=== PATIENT | female | born 1980 | race Caucasian/White ===

== ENCOUNTER → 2017-09-07 13:37 | Outpatient (CLI) | payer OTHER, SELFPAY ==
--- NOTE | 2017-09-07 12:05 | CER_PTH ---
PATIENT: JAVON HANEY [facility]: [facility] U#:[id number] AGE/SX: 45/F ROOM: RE09/07/[address]: Dr. Daisy Cavazos MD : 1980 BED: DIS: SPEC #: [id number] RECD: 09/07/17 14:37 STATUS: KONSTANTIN RERosalie #: [id number] RE: 09/07/17 12:[address]: Daisy Brunson DEPT: SURGICAL PATHOLOGY RECD BY: Radames Schultz ENTERED: 09/07/17 14:38 SP TYPE: CERV OTHR DR: Macrina Primary Care Phys Tissues: A - Uterine cervix, NOS B - Uterine cervix, NOS C - Endocervical Procedures: Surgery Specimen Level IV HEADER OPERATION: Colposcopy PRE-OP DIAGNOSIS: LGSIL pap 06/15/17, LMP 08/19/17 TISSUE SUBMITTED: A ? Cervical biopsy 12 o?clock os, B ? Cervical biopsy 12 o?clock franchesca, C - ECC MICROSCOPIC DIAGNOSIS A. Cervix, 12 o?clock, os, biopsy: Scant minute fragments of benign endocervical epithelium, no pathologic diagnosis. Negative for dysplasia. B. Cervix, 12 o?clock, franchesca, biopsy: Fragments of benign ecto- and endocervical epithelium, no pathologic diagnosis. Negative for dysplasia. C. ECC: Fragments of benign endocervical epithelium and mucosa with chronic inflammation, blood and mucous. Negative for dysplasia. ZION:anjana 09/08/17 MICROSCOPIC DESCRIPTION Slides are reviewed. GROSS DESCRIPTION A - Received in fixative is one container labeled with the patient's name and designated cervical biopsy 12 o'clock os. The specimen consists of multiple irregular fragments of light bee mucoid tissue that in aggregate measure 0.5 x 0.2 x 0.1 cm. The specimen is totally submitted in one cassette. B - Received in fixative is one container labeled with the patient's name and designated cervical biopsy 12 o'clock franchesca. The specimen consists of multiple irregular fragments of light bee mucoid tissue that in aggregate measure 0.3 x 0.1 x 0.1 cm. The specimen is totally submitted in one cassette. C - Received in fixative is one container labeled with the patient's name and designated ECC. The specimen consists of multiple fragments of hemorrhagic mucoid tissue that in aggregate measure 1.5 x 1.5 x 0.1 cm. The specimen is totally submitted in one cassette. / ZION:anjana 09/07/17 TC:3 CPT: 87125 x3
== END ==
PROVIDERS: Visit Provider Obstetrics & Gynecology
DX: R87.612 Low grade squamous intraepithelial lesion on cytologic smear of cervix (LGSIL) (principal)
CPT/HCPCS: 88305

== ENCOUNTER → 2019-05-13 12:32 | Outpatient (CLI) | payer BC, SELFPAY ==
--- NOTE | 2019-05-13 12:39 | RAD_ITS ---
STUDY: X-RAY - LEFT KNEE REASON FOR EXAM: Female, 38 years old. Medial knee pain TECHNIQUE: 3 view(s) of the knee. COMPARISON: None. FINDINGS: Normal visualized distal femur. Normal visualized proximal tibia and fibula. Normal proximal tibiofibular articulation. Normal medial femorotibial compartment. Normal lateral femorotibial compartment. Normal patellofemoral articulation. The soft tissue structures are unremarkable. RAD/Knee 4 or More Views IMPRESSION: Normal x-ray examination of the knee. Electronically Signed: Omega Zamudio, at 18:20 EDT Tel , Service support ,
== END ==
PROVIDERS: Referring Provider Nurse Practitioner; Visit Provider Nurse Practitioner
DX: M25.562 Pain in left knee (principal)
CPT/HCPCS: 73564

== ENCOUNTER → 2021-03-22 16:04 | Outpatient (CLI) | payer BC, SELFPAY ==
[2021-03-27 20:08] LABS: HPV Genotype 16, Aptima Negative (Negative)
[2021-03-27 20:26] LABS: HPV APTIMA, High Risk Positive (Negative); HPV Genotype 18,45 Aptima Negative (Negative)
== END ==
PROVIDERS: Visit Provider Obstetrics & Gynecology
DX: Z12.4 Encounter for screening for malignant neoplasm of cervix (principal); Z11.3 Encounter for screening for infections with a predominantly sexual mode of transmission
CPT/HCPCS: 87624; 88175; G0145

== ENCOUNTER → 2021-03-25 11:11 | Outpatient (CLI) | payer BC, SELFPAY ==
[2021-03-25 14:38] LABS: HIV - WCH Non-Reactive (Nonreactive); Hepatitis C Antibody Non-Reactive (Nonreactive); Syphilis Antibodies Non-reactive
== END ==
PROVIDERS: Visit Provider Obstetrics & Gynecology
DX: Z11.3 Encounter for screening for infections with a predominantly sexual mode of transmission (principal)
CPT/HCPCS: 36415; 86703; 86780; 86803

== ENCOUNTER 2021-08-30 16:11 | Outpatient (CLI) | payer OTHER, SELFPAY ==
[2021-09-02 18:08] LABS: Chlamydia By Nucleic Acid AMP Negative (Negative)
[2021-09-03 09:53] LABS: Gonococcus By Nucleic Acid AMP Negative (Negative)
== END 2021-08-30 23:59 | disposition short-term general hospital (02) ==
LOC: LABSPEC 16:13
PROVIDERS: Visit Provider Obstetrics & Gynecology
DX: Z11.3 Encounter for screening for infections with a predominantly sexual mode of transmission (principal)
CPT/HCPCS: 87491; 87591

== ENCOUNTER → 2022-04-15 | Outpatient (CLI) | payer OTHER, SELFPAY ==
--- NOTE | 2022-04-15 | IMM_PTH ---
PATIENT: JAVON HANEY LOC: [facility] U#:[id number] AGE/SX: 41/F ROOM: RE04/15/[address]: Dr. Dejon Marsh MD : 1980 BED: DIS: 04/15/2022 SPEC #: [id number] RECD: 04/16/22 13:46 STATUS: KONSTANTIN REQ #: [id number] RE: 04/15/22 00:[address]: Dejon Marsh DEPT: IMMUNOHISTOCHEMISTRY RECD BY: Rhea Romero ENTERED: 04/16/22 13:47 SP TYPE: IMMUNO OT DR: No Primary Care Phys Tissues: A - Uterine cervix, NOS B - Endocervical Procedures: p16 (initial) KI-67 (add) PHYSICIAN & INSTITUTION [place] [phone] SPECIMEN INFORMATION: Tissue Source: A ? Cervical biopsy at 1, 5, 7 and 11 o?clock, B - [facility] Clinical Info: ASCUS HPV positive Specimen Number: [id number] A & B CPT code: 88588 x2, 96230 x2 METHODOLOGY: Deparaffinized sections of prefer/formalin-fixed tissue or PAP/DQ stained slides are incubated with monoclonal/polyclonal antibodies/oligonucleotide probes. Localization is made via biotin free immunoperoxidase method. Appropriate controls are performed and reacted as expected. Results on target cell population are indicated in the following table: RESULTS: ANTIBODY / CLONE RESULT Block A P16 (E6H4) negative Ki-67 (30-9) negative Block B P16 (E6H4) negative Ki-67 (30-9) negative These tests were developed and their performance characteristics determined by [facility]. They may not have been cleared or approved by the U.[place]. Food and Drug Administration. The FDA has determined that such clearance or approval is not necessary. The above immunohistochemical/dualISH markers are ordered and reviewed by the Pathologist. INTERPRETATION: A. Cervical biopsy at 1, 5, 7 and 11 o?clock, biopsy: Negative for dysplasia. B. ECC: Negative for dysplasia. SJ:anjana 04/17/2022
--- NOTE | 2022-04-15 | CER_PTH ---
PATIENT: JAVON HANEY [facility] U#:[id number] AGE/SX: 41/F ROOM: RE04/15/[address]: Dr. Dejon Marsh MD : 1980 BED: DIS: 04/15/2022 SPEC #: [id number] RECD: 04/15/22 13:24 STATUS: KONSTANTIN STEPH #: [id number] RE: 04/15/22 00:[address]: Dejon Marsh DEPT: SURGICAL PATHOLOGY RECD BY: Radames Schultz ENTERED: 04/15/22 13:25 SP TYPE: CERV OSEI DR: No Primary Care Phys Tissues: A - Uterine cervix, NOS B - Endocervical Procedures: Surgery Specimen Level IV HEADER OPERATION: Colposcopy PRE-OP DIAGNOSIS: ASCUS HPV positive TISSUE SUBMITTED: A ? Cervical biopsy at 1, 5, 7 and 11 o?clock, B - ECC MICROSCOPIC DIAGNOSIS A. Cervix, 1, 5, 7 and 11 o?clock, biopsy: Fragments of squamous mucosa, negative for dysplasia. Focal mild chronic inflammation. See comment. B. ECC: Scant minute fragment of benign squamous epithelium, negative for dysplasia. A few minute fragments of endocervical mucosa with mild chronic inflammation. See comment. ZION:anjana 04/16/2022 COMMENT A & B. Immunohistochemistry ([id number]) for surrogate HPV marker (p16) supports the above diagnosis. MICROSCOPIC DESCRIPTION Slides are reviewed. GROSS DESCRIPTION A - Received in fixative is one container labeled with the patient's name and designated cervical biopsy at 1, 5, 7 and 11 o'clock. The specimen consists of three irregular fragments of bee soft tissue that in aggregate measure 0.8 x 0.4 x 0.3 cm. The specimen is totally submitted in one cassette. B - Received in fixative is one container labeled with the patient's name and designated ECC. The specimen consists of multiple irregular fragments of bee mucoid tissue that in aggregate measure 1 x 0.1 x 0.1 cm. The specimen is totally submitted in one cassette. / ZION:anjana 04/15/2022 TC:5 CPT: 11643 x2
== END | disposition home or self-care (01) ==
LOC: LABSPEC 12:30
PROVIDERS: Visit Provider Obstetrics & Gynecology
DX: N72 Inflammatory disease of cervix uteri (principal); R87.810 Cervical high risk human papillomavirus (HPV) DNA test positive
CPT/HCPCS: 88305; 88341; 88342

== ENCOUNTER → 2022-06-03 | Outpatient (CLI) | payer OTHER, SELFPAY ==
--- NOTE | 2022-06-03 07:20 | BI_ITS ---
MAMMOGRAPHY - BILATERAL SCREENING REASON FOR EXAM: Female, 42 years old. Routine annual screening examination. PERTINENT HISTORY: Non-contributory. TECHNIQUE: Digital bilateral breast susu (3D mammographic acquisition) in the CC and MLO projections. 2-D mediolateral oblique (MLO) and craniocaudad (CC) views of both breasts were obtained. CAD: Full Field Digital Mammography with Computer Added Detection was performed. COMPARISON: None. Baseline examination. FINDINGS: Breast Composition: The breasts are heterogeneously dense, which may obscure small masses. There are no dominant masses or suspicious calcifications. There is asymmetry of breast tissue or more breast tissue is seen in the upper-outer quadrant of the left breast as compared to the right side. No other significant abnormalities are identified. BI/SCRN MAMM (CAD)W/SUSU BILAT IMPRESSION: Negative screening mammogram. Yearly followup mammogram recommended. (A) ASSESSMENT CATEGORY: BIRADS Category 2: Benign. A letter regarding these results will be sent to the patient by the facility within 30 days. Approximately 10% of breast cancers are not detected by mammography. A normal mammogram should not delay biopsy of a clinically suspicious abnormality. [id number] Electronically Signed: Froilan Claros MD at 8:54 EDT ,
== END | disposition home or self-care (01) ==
PROVIDERS: Visit Provider Obstetrics & Gynecology
DX: Z12.31 Encounter for screening mammogram for malignant neoplasm of breast (principal)
CPT/HCPCS: 77063; 77067

== ENCOUNTER 2023-04-02 15:00 | Outpatient (RCR) | payer OTHER, SELFPAY ==
[2023-04-01 15:23] VITALS: BP 145/93; PULSE 94; RESP 20; TEMP 36.4
[2023-04-02 15:03] VITALS: BP 150/103; PULSE 95; RESP 18; TEMP 36.2
--- NOTE | 2023-04-02 16:48 | CT_ITS ---
CT angiogram of the abdominal aorta with bilateral lower extremity runoff with 3-dimensional reconstructions, with MIP reconstructions Clinical history: POSS POPLITEAL PSEUDOANEURYSM Technique: Multiple helical CT images were obtained from the domes the diaphragms to level of feet after intravenous administration of 100 cc Isovue-370 with transaxial, coronal and sagittal multiplanar reconstructions. On a separate workstation, 3-dimensional reconstructions were obtained of the arterial vasculature using volume rendering technique and maximal intensity projection technique as per departmental protocol. This CT exam has been performed using low dose vendor recommended protocols to limit radiation exposure to As Low As Reasonably Achievable. RADIATION DOSAGE (If Supplied By Facility): CTDIvol = ( 9.12 ) mGy, DLP = ( 1927.56 ) mGycm COMPARISON: No relevant prior comparison study available FINDINGS: ABDOMEN / PELVIS: The visualized portions of the liver are unremarkable. The visualized portions of the spleen and pancreas appear to be within normal limits. Gallbladder is contracted.. The kidneys are unremarkable. The visualized bowel is unremarkable. The pelvic structures appear normal. IUD in place. VASCULAR STRUCTURES: There appears to be good opacification and patency of the visualized abdominal aorta. There appears to be good opacification and patency of the celiac trunk, superior mesenteric artery. There appears to be good opacification and patency noted of the RIGHT and LEFT renal arteries. There appears to be good opacification and patency noted of the inferior mesenteric artery. ARTERIAL STRUCTURES OF THE RIGHT LOWER EXTREMITY: Common iliac artery: Appears patent with good opacification. External iliac artery: Appears patent with good opacification. Internal iliac arteries: Appears patent with good opacification. Common femoral artery: Appears patent with good opacification. Superficial femoral arteries: Appear patent with good opacification. Popliteal artery: Appears patent with good opacification. Anterior tibial artery: Appears patent with good opacification. Posterior tibial artery: Appears patent with good opacification. Peroneal artery: Appears patent with opacification. ARTERIAL STRUCTURES OF THE LEFT LOWER EXTREMITY: Common iliac artery: Appears patent with good opacification. External iliac artery: Appears patent with good opacification. Internal iliac arteries: Appears patent with good opacification. Common femoral artery: Appears patent with good opacification. Superficial femoral arteries: Appear patent with good opacification. Popliteal artery: Appears patent with good opacification. Anterior tibial artery: Appears patent with good opacification. Posterior tibial artery: Appears patent with good opacification. Peroneal artery: Appears patent with opacification. Skin defect posterior to the left knee with subcutaneous soft tissue edema, small posterior fluid collection with internal gas bubbles. CT/CTA Abd w/Runoff W/WO Contrast IMPRESSION: Normal study of the bilateral lower extremity runoff. No evidence of left popliteal artery pseudoaneurysm. Soft tissue wound posterior to the left knee with subcutaneous edema/cellulitis and small fluid collection with gas bubbles, infected collection cannot be excluded. Electronically Signed: Elan Olivier MD at 18:22 EDT ,
--- NOTE | 2023-04-03 00:21 | PCM.WC.HP ---
History of Present Illness Date of Service: 04/03/23 Chief Complaint: L popliteal fossa wound History of Wound: Patient is a 42 y/o female who presents today for evaluation and management of a wound in her L popliteal fossa. On 03/20, she fell getting down from a truck bed and hit the back of her L knee on the truck hitch/wires, She reports initially it left a gash, but did not seem too deep. As time went on, she had progressively worsening L lower leg swelling/bruising, redness, and pain so she presented to urgent care on 03/24 for evaluation. She was prescribed Keflex and instructed to follow-up with her PCP. She saw her PCP on 03/26, a culture was obtained and report shows it grew MRSA, she was switched to doxycycline. A duplex was also ordered which was negative for DVT, showed anterior etienne hematoma. She was referred here for continued wound care. She has been applying dry dressing to the area, it is challenging to get dressings to stay in place. She feels the swelling and feeling of tightness continues to worsen. She reports she has not had too much drainage. The erythema and pain has improved since starting antibiotics. Ecchymosis also seems to be improving. She does have some numbness in the area surrounding the wound, but denies any discoloration/coldness worse than normal to her L foot. She has no significant medical history. [facility] Home Medications Control 05/03/17 [History Last Taken Unknown] cephalexin 250 mg capsule 250 mg PO BID 04/01/23 [History Last Taken Unknown] duloxetine 60 mg capsule,delayed release (Cymbalta) 60 mg PO DAILY 04/01/23 [History Last Taken Unknown] phentermine 37.5 mg capsule 37.5 mg PO DAILY 04/01/23 [History Last Taken Unknown] topiramate 25 mg tablet (Topamax) 25 mg PO BID 04/01/23 [History Last Taken Unknown] Allergy/AdvReac Type Severity Reaction Status Date / Time No Known Allergies Allergy Verified 05/03/17 00:28 Social History Smoking Status: Current some day smoker Vital Signs Vital Signs Vital Signs: 04/02/23 15:03 Temperature 97.1 F L Temperature Source Temporal Pulse Rate 95 Respiratory Rate 18 Blood Pressure 150/103 H Blood Pressure Mean 118 Blood Pressure Source Monitor Blood Pressure Position Sitting Blood Pressure Location Right Arm Oxygen Delivery Method Room Air Physical Exam Const alert, oriented x3 and no apparent distress General Appearance: cooperative HEENT normocephalic, head/scalp atraumatic, hearing grossly normal bilaterally, external ears normal and external nose normal Eyes EOMs intact bilaterally General Eye: normal appearance of both eyes Neck General: normal visual inspection Resp normal respiratory effort and no use of accessory muscles Effort and Inspection: able to speak in complete sentences; Negative for respiratory distress, labored, grunting, stridor or retractions Cardio regular rate and regular rhythm Extremity Extremity Narrative: L DP/PT pulses palpable/intact. Capillary refill intact. No cyanotic discoloration of the left lower legt/foot. L lower leg with significant edema. Mostly tight but soft to palpation with small approx 2x2cm area just superior to the wound which is harder to palpation. Skin Skin Narrative: Wound in L popliteal fossa is a deep laceration which tracks at least 2cm. Copious serous, lightly blood tinged fluid drained. No purulence able to be expressed. Moderate adherent devitalized tissue overlying a portion of this wound. There is a second, superficial wound on the superior portion of the posterior calf, this had moderate slough/devitalized tissue but pink granulation tissue after debridement. Neuro oriented x3, CN's II-XII intact bilaterally, moves all extremities, no focal motor deficits and deep tendon reflexes 2+ bilaterally Psych mental status grossly normal Appearance: grossly normal Attitude: calm and engaged Activity / Motor Behavior: appropriate eye contact Speech: normal speech Mood & Affect: euthymic mood Debridement Note Debridement Note Wound debrided: L popliteal fossa Laterality: Left Type of Debridement: Selective debridement Anesthesia Used: 5% Lidocaine Gel Depth: in the subcutaneous layer Percentage of wound debrided: 50 Instrument Used: #10 blade and Forceps Tissue Removed: adherent devitalized/necrotic tissue Severity: Fat Layer Exposed Amount of bleeding with debridement: Mild Bleeding Controlled with: Pressure Patient tolerated procedure: Patient tolerated procedure well Post-Debridement Measurements and Additional Note: Post-Debridement Measurements/Treatment [email or web address] - Nurse 1 - General Ulcer Assessment Start: 04/01/23 15:22 Freq: Status: Active Protocol: NIYA Activity Type Activity Date Activity User E-sign Co-sign Detail Recorded Client Recorded Date Recorded By Document 04/01/23 15:23 DL [id number] 04/01/23 15:38 DL Document 04/02/23 15:03 KW [id number] 04/02/23 15:13 KW 04/01/23 04/02/23 15:23 15:03 - Today's Visit Information Type of service Initial Visit Initial Visit Arrival Mode Ambulatory Ambulatory Transfer Assistance None Patient Identification Verified (Name & Yes Yes ) Vital Signs Temperature (97.8 F-99.1 F) 97.5 F L 97.1 F L Temperature Source Temporal Temporal Pulse Rate (60-100) 94 95 Pulse Location Monitor Monitor Respiratory Rate (12-18) 20 H 18 Respiratory rate source Observation Observation Oxygen Delivery Method Room Air Blood Pressure (90/60-120/80) 145/93 H 150/103 H Blood Pressure Mean 110 118 Source Monitor Monitor Position Sitting Blood Pressure Location Right Arm History Since Last Visit- (Skip if this is Patient's initial visit) Left Footwear Regular Shoe Right Footwear Regular Shoe Pain Scale: 0-10 Numeric Is Patient Pain Free? Yes No LLE -Description Throbbing, Tightness -Intensity 5 -Duration (hours) Acute -Pain Behavior No Change in Behavior -Pain Aggravating Factors ADL's -Alleviating Factors/Interventions Medication WC - Nurse 1 - General Ulcer Measurement Start: 04/01/23 15:22 Freq: Status: Active Protocol: Activity Type Activity Date Activity User E-sign Co-sign Detail Recorded Client Recorded Date Recorded By Document 04/01/23 15:23 DL [id number] 04/01/23 15:38 DL Document 04/02/23 15:03 [id number] 04/02/23 15:13 KW 04/01/23 04/02/23 15:23 15:03 Wound Center Nurse 1 #1 L Post Knee -Current Size (cm) - Length 3.8 3.5 -Current Size (cm) - Width 5.5 6.0 -Current Size (cm) - Depth 0.2 0.3 -Total Square Cm 20.90 21.00 -Photo Taken Yes -Undermining/Tunneling Yes -Undermining/Tunneling Starts (O'clock 12 ) -Undermining/Tunneling Ends (O'clock) 12 -Maximum Distance (cm) 0.6 -Exudate Amt Medium Small -Exudate Type Serosanguineous Serosanguineous -Wound Margin Distinct, Distinct, Outline Outline Attached Attached -Granulation Amt None Present (0 %) -Granulation Quality Red -Necrosis Amt Large (67-100%) Medium (34-66%) -Necrotic Tissue Type Adherent Slough Adherent Slough -Structure Exposed N/A -Texture (Taylor-wound Skin Appearance) Localized Edema Assessed ,Scarring -Moisture (Taylor-wound Skin Appearance) No Abnormality Assessed -Color (Taylor-wound Skin Appearance) No Abnormality Assessed -Temperature (Taylor-wound Skin No Abnormality No Abnormality Appearance) (Pt Warm) (Pt Warm) -Tenderness on Palpation (Taylor-wound No Skin Appearance) -Ulcer Cleansing Soap and Water Rinsed/ Irrigated with Saline -Foul Odor after Cleansing No No -Anesthetic Used 5% Lidocaine Gel Right Calf (cm) 43 Right Ankle (cm) 23.5 Left Calf (cm) 47 Left Ankle (cm) 24.5 WC - Nurse 2 - General Ulcer CM Notes Start: 04/01/23 15:22 Freq: Status: Active Protocol: Activity Type Activity Date Activity User E-sign Co-sign Detail Recorded Client Recorded Date Recorded By Document 04/02/23 17:29 PL [id number] 04/02/23 17:33 PL 04/02/23 17:29 Wound Center Nurse 2 #2 L Post Calf -Time 15:21 -Correct Patient Yes -Correct Side, Site, Position Yes -Correct Procedure Yes -Procedure Performed Yes -Type of Procedure Debridement -Clinical Debridement Subcutaneous -Tissue Removed Subcutaneous -Post Debridement (cm) - Length 1.5 -Post Debridement (cm) - Width 2.5 -Post Debridement (cm) - Depth 0.1 -Total Square (Post) (cm) 3.75 -Area of Debridement (cm) - Length 1.5 -Area of Debridement (cm) - Width 2.5 -Total Square (Area) (cm) 3.75 -Tunneling No -Undermining/Tunneling No -Circular Undermining No -Wound/Ulcer Outcome Not Healed -Ulcer Cleansing Rinsed/ Irrigated with Saline -Foul Odor after Cleansing No -Bioengineered Tissue No -Bleeding Controlled with Pressure -Treatment Response Procedure Tolerated Well -Debridement - Subq, 1st 20sq cm Yes #1 L Post Knee -Time 15:21 -Correct Patient Yes -Correct Side, Site, Position Yes -Correct Procedure Yes -Procedure Performed Yes -Type of Procedure Debridement -Clinical Debridement Subcutaneous -Tissue Removed Subcutaneous -Post Debridement (cm) - Length 0.5 -Post Debridement (cm) - Width 2.0 -Post Debridement (cm) - Depth 1.0 -Total Square (Post) (cm) 1.00 -Area of Debridement (cm) - Length 0.5 -Area of Debridement (cm) - Width 2.0 -Total Square (Area) (cm) 1.00 -Tunneling No -Undermining/Tunneling No -Circular Undermining No -Wound/Ulcer Outcome Not Healed -Ulcer Cleansing Rinsed/ Irrigated with Saline -Foul Odor after Cleansing No -Bioengineered Tissue No -Bleeding Controlled with Pressure -Treatment Response Procedure Tolerated Well -Debridement - Subq, 1st 20sq cm No Pain Scale: 0-10 Numeric Is Patient Pain Free? Yes - Nurse 3 - General Ulcer D/C NN Start: 04/01/23 15:22 Freq: Status: Active Protocol: Activity Type Activity Date Activity User E-sign Co-sign Detail Recorded Client Recorded Date Recorded By Document 04/02/23 15:54 DL [id number] 04/02/23 15:59 DL 04/02/23 15:54 Wound Care Center Nurse 3 #1 L Post Knee -Ulcer Cleansing Rinsed/ Irrigated with Saline -Foul Odor after Cleansing No -Primary Dressing Applied Nugauze, Plain 1/4in -Other Dressing DAKINS -Primary Dressing Covered/Secured with Dry Gauze & Roll Gauze, Secured with Tape -Nugauze, Plain 1/4in 1 Treatment Response Procedure Tolerated Well Pain Scale: 0-10 Numeric Is Patient Pain Free? Yes WC - Visit Discharge Discharge Condition Stable Ambulatory Status Ambulatory Transportation Private Auto Additional Wound Wound debrided: L superior posterior calf Laterality: Left Type of Debridement: Excisional debridement Anesthesia Used: 5% Lidocaine Gel Depth: Down to and including healthy tissue Percentage of wound debrided: 100 Instrument Used: 5mm curette Tissue Removed: slough, devitalized tissue Severity: Limited To Skin Breakdown Amount of bleeding with debridement: Mild Bleeding Controlled with: Pressure Patient tolerated procedure: Patient tolerated procedure well Radiology Impression Abdomen/Pelvis CTA 04/02/23 16:48 IMPRESSION: Normal study of the bilateral lower extremity runoff. No evidence of left popliteal artery pseudoaneurysm. Soft tissue wound posterior to the left knee with subcutaneous edema/cellulitis and small fluid collection with gas bubbles, infected collection cannot be excluded. Electronically Signed: Elan Olivier MD at 18:22 EDT , Charges/Coding Visit Charges Office Visits / Consults: [id number] OV L3 New Procedures Integumentary 111xxx-113xx: 94000 Kristen subq tissue 20 sq cm/< Assessment/Plan Assessment/Plan (1) Laceration of lower leg, left, complicated: CODE(S): S81.812A - Laceration without foreign body, left lower leg, initial encounter (2) Traumatic seroma of left lower leg: CODE(S): T79.2XXA - Traumatic secondary and recurrent hemorrhage and seroma, initial encounter (3) Abrasion of left calf: CODE(S): S80.812A - Abrasion, left lower leg, initial encounter PLAN: Plan Given location of the wound and reported continued worsening swelling/tightness, I did want to exclude possibility of popliteal pseudoaneurysm prior to full debridement and evaluation of the wound. I did order a stat CTA Aorta with runoff to evaluate. I was very gentle in my debridement of the adherent necrotic tissue as I wanted to await CT scan results. Nonetheless, copious serous drainage occurred with this gentle manipulation. I did gentle palpation around the wound and was not able to express any purulence. There was no mejia blood, occasional blood-tinged fluid. Planned to very gently pack the popliteal fossa wound with nugauze to promote continued drainage, dakins-soaked gazue to the surface of both wounds, cover with super-absorber dressing. Hopefully this will adhere and stay in place despite location of the wounds. If it does not, then may wrap with dry gauze dressing and change whenever it becomes soaked/soiled. Do not submerge the wounds in water such as a bath/swimming pool, etc. Continue with doxycycline as prescribed by PCP. Patient completed CTA 1 hour after her visit. It was negative for any vascular compromise or complication. It did reveal the soft tissue injury which extended into subcutaneous tissue but fortunately does not appear to have breached the fascia or muscle. Will keep wound care the same, but with this knowledge will be able to better debride/explore the wound at next visit. Patient was called with the results of the CTA.
== END 2023-04-02 23:59 | disposition home or self-care (01) ==
LOC: WC 15:00
PROVIDERS: PCP Nurse Practitioner Family; Referring Provider Nurse Practitioner Family; Visit Provider Physician Assistant
DX: T79.2XXA Traumatic secondary and recurrent hemorrhage and seroma, initial encounter (principal); L03.116 Cellulitis of left lower limb; S80.812A Abrasion, left lower leg, initial encounter; S81.812A Laceration without foreign body, left lower leg, initial encounter
CPT/HCPCS: 11042; 75635; 99213; Q9967; G0463

== ENCOUNTER → 2023-04-02 | Outpatient (CLI) | payer OTHER, SELFPAY | END | disposition home or self-care (01) | PROVIDERS: PCP Nurse Practitioner Family; Referring Provider Physician Assistant; Visit Provider Physician Assistant | DX: Z00.00 Encounter for general adult medical examination without abnormal findings (principal) ==

== ENCOUNTER 2023-04-23 13:15 | Outpatient (RCR) | payer OTHER, SELFPAY ==
[2023-04-03 00:24] VITALS: BP 150/103; PULSE 95; RESP 18; TEMP 36.2
--- NOTE | 2023-04-09 08:44 | PCM.WC.PN ---
History of Present Illness Date of Service: 04/09/23 Chief Complaint: L popliteal fossa wound History of Wound: Patient is a 42 y/o female who presents today for evaluation and management of a wound in her L popliteal fossa. On 03/20, she fell getting down from a truck bed and hit the back of her L knee on the truck hitch/wires, She reports initially it left a gash, but did not seem too deep. As time went on, she had progressively worsening L lower leg swelling/bruising, redness, and pain so she presented to urgent care on 03/24 for evaluation. She was prescribed Keflex and instructed to follow-up with her PCP. She saw her PCP on 03/26, a culture was obtained and report shows it grew MRSA, she was switched to doxycycline. A duplex was also ordered which was negative for DVT, showed anterior etienne hematoma. She was referred here for continued wound care. She has been applying dry dressing to the area, it is challenging to get dressings to stay in place. She feels the swelling and feeling of tightness continues to worsen. She reports she has not had too much drainage. The erythema and pain has improved since starting antibiotics. Ecchymosis also seems to be improving. She does have some numbness in the area surrounding the wound, but denies any discoloration/coldness worse than normal to her L foot. She has no significant medical history. Subjective Subjective She has been gently packing the wound as directed with help from family/nursing coworkers. She states she had a lot of drainage for the first 24-48 hours following her appt here last week, but after that it has tapered off. Her leg overall feels much less tight and swollen. No new or worsening pain, swelling, redness, purulent drainage, foul odor. Objective Data Objective Data Vital Signs: Vital Signs Temp Pulse Resp BP 97.1 F L 95 18 150/103 H 04/03/23 00:24 04/03/23 00:24 04/03/23 00:24 04/03/23 00:24 Charges/Coding Procedures Integumentary 111xxx-113xx: [id number] Kristen subq tissue 20 sq cm/< Physical Exam Const alert, oriented x3 and no apparent distress General Appearance: cooperative Resp normal respiratory effort and no use of accessory muscles Effort and Inspection: able to speak in complete sentences; Negative for respiratory distress Extremity Extremity Narrative: L DP/PT pulses palpable/intact. Capillary refill intact. No cyanotic discoloration of the left lower legt/foot. L lower leg with edema, improved from last week. Soft to palpation with small approx 2x2cm area just superior to the wound which is harder to palpation. Skin Skin Narrative: Wound in L popliteal fossa is a deep laceration which tracks 2.9 cm inferiorly at about 7 o'clock. Copious serous, lightly blood tinged fluid drained.after debridement/probing. No purulence able to be expressed. The wound has filled in notably with granulation tissue since last week. Wound is 0.8x1.0x2.9. There is a second, superficial wound on the superior portion of the posterior calf, this had moderate slough/devitalized tissue but pink granulation tissue after debridement. Wound measurement: 0.9x2.1x0.3 Psych mental status grossly normal Appearance: grossly normal Attitude: calm and engaged Activity / Motor Behavior: appropriate eye contact Speech: normal speech Debridement Note Debridement Note Wound debrided: L popliteal fossa Laterality: Left Type of Debridement: Selective debridement Anesthesia Used: 5% Lidocaine Gel Depth: in the subcutaneous layer Percentage of wound debrided: 50 Instrument Used: #10 blade and Forceps Tissue Removed: adherent devitalized/necrotic tissue Severity: Fat Layer Exposed Amount of bleeding with debridement: Mild Bleeding Controlled with: Pressure Patient tolerated procedure: Patient tolerated procedure well Additional Wound Wound debrided: L superior posterior calf Laterality: Left Type of Debridement: Excisional debridement Anesthesia Used: 5% Lidocaine Gel Depth: Down to and including healthy tissue Percentage of wound debrided: 100 Instrument Used: 5mm curette Tissue Removed: slough, devitalized tissue Severity: Limited To Skin Breakdown Amount of bleeding with debridement: Mild Bleeding Controlled with: Pressure Patient tolerated procedure: Patient tolerated procedure well Assessment/Plan Assessment/Plan (1) Laceration of lower leg, left, complicated: CODE(S): S81.812A - Laceration without foreign body, left lower leg, initial encounter (2) Traumatic seroma of left lower leg: CODE(S): T79.2XXA - Traumatic secondary and recurrent hemorrhage and seroma, initial encounter (3) Abrasion of left calf: CODE(S): S80.812A - Abrasion, left lower leg, initial encounter PLAN: Plan CTA was negative for any vascular compromise or complication. It did reveal the soft tissue injury which extended into subcutaneous tissue but fortunately does not appear to have breached the fascia or muscle. She has completed oral antibiotics as prescribed by PCP. No signs/symptoms of infection today, will continue to monitor. Copious serous drainage was again incited by debridement today. Will continue to gently pack the popliteal fossa wound with Nugauze lightly moistened with dakins, cover both wound beds with 1 layer of dakins moistened gauze, then cover with super absorber or dry dressing/karlix wrap (whichever more readily stays in place). Change the outer dressings at least once daily or more often if they become soiled or soaked. Change packing at least every other day. Continue to utilize MACI wrap for compression. Also want to note that patient brought to my attention that in my last visit note failed to correct her smoking history. She quit smoking several years ago, I will addend my prior note accordingly. She will follow-up in 1 week or sooner as needed.
[2023-04-09 14:01] VITALS: BP 132/97; PULSE 108; RESP 16; TEMP 36.1
[2023-04-16 13:23] VITALS: BP 156/99; PULSE 105; RESP 18; TEMP 36.3
--- NOTE | 2023-04-17 08:25 | PN.PCM_ITS ---
History of Present Illness Date of Service: 04/17/23 Chief Complaint: L popliteal fossa wound History of Wound: Patient is a 42 y/o female who presents today for evaluation and management of a wound in her L popliteal fossa. On 03/20, she fell getting down from a truck bed and hit the back of her L knee on the truck hitch/wires, She reports initially it left a gash, but did not seem too deep. As time went on, she had progressively worsening L lower leg swelling/bruising, redness, and pain so she presented to urgent care on 03/24 for evaluation. She was prescribed Keflex and instructed to follow-up with her PCP. She saw her PCP on 03/26, a culture was obtained and report shows it grew MRSA, she was switched to doxycycline. A duplex was also ordered which was negative for DVT, showed anterior etienne hematoma. She was referred here for continued wound care. She has no significant medical history. Subjective Subjective Swelling continues to improve over all, ecchymosis has resolved. She reports some tenderness along the calf in the area of the wound, but no new or worsening redness, drainage. No N/V, F/C. She has been walking and getting back to her usual activity without issue. As with weeks prior, she had a lot of serous drainage in the first few days following her appointment then this tapered off. She has had nurses at work changing her dressing, reportedly not having to pack nearly as much. Objective Data Objective Data Vital Signs: Vital Signs Temp Pulse Resp BP O2 Del Method 97.3 F L 105 H 18 156/99 H Room Air 04/16/23 13:23 04/16/23 13:23 04/16/23 13:23 04/16/23 13:23 04/16/23 13:23 Oxygen Delivery Method Room Air Charges/Coding Procedures Integumentary 111xxx-113xx: [id number] Kristen subq tissue 20 sq cm/< Physical Exam Const alert, oriented x3 and no apparent distress General Appearance: cooperative Resp normal respiratory effort and no use of accessory muscles Effort and Inspection: able to speak in complete sentences; Negative for respiratory distress Extremity Extremity Narrative: L DP/PT pulses palpable/intact. Capillary refill intact. No cyanotic discoloration of the left lower left/foot. L lower leg with edema, continuing to improve. Soft to palpation with small approx 2x2cm area just superior to the wound which is harder to palpation and now this week with swelling down noted a small area which is a bit harder to palpation and slightly tender just inferomedial the calf wound, no surrounding erythema, warmth, ecchymosis. Skin Skin Narrative: Tracking inferiorly at about 7 o'clock significantly reduced. Minimal serous drainage. No purulence able to be expressed. The wound continues to fill in with granulation tissue since last week. Superficial wound on the superior portion of the posterior calf, some slough, pink granulation tissue, improving in size. Psych mental status grossly normal Appearance: grossly normal Attitude: calm and engaged Activity / Motor Behavior: appropriate eye contact Speech: normal speech Debridement Note Debridement Note Wound debrided: L popliteal fossa Laterality: Left Type of Debridement: Selective debridement Anesthesia Used: 5% Lidocaine Gel Depth: in the subcutaneous layer Percentage of wound debrided: 50 Instrument Used: 3mm curette Tissue Removed: slough Severity: Fat Layer Exposed Amount of bleeding with debridement: Mild Bleeding Controlled with: Pressure Patient tolerated procedure: Patient tolerated procedure well Post-Debridement Measurements and Additional Note: Post-Debridement Measurements/Treatment [facility] Nurse 1 - General Ulcer Assessment Start: 04/09/23 13:59 Freq: Status: Active Protocol: [email or web address] Activity Type Activity Date Activity User E-sign Co-sign Detail Recorded Client Recorded Date Recorded By Document 04/09/23 14:01 [facility] [id number] 04/09/23 14:10 [facility] Document 04/16/23 13:23 [id number] 04/16/23 13:44 04/09/23 04/16/23 14:01 13:23 - Today's Visit Information Type of service Follow-up Visit Follow-up Visit (Physician/SHAFT TENDER (Physician/SHAFT TENDER ) ) Arrival Mode Ambulatory Ambulatory Transfer Assistance None Patient Identification Verified (Name & Yes Yes ) Patient Requires Transmission-Based No Precautions Vital Signs Temperature (97.8 F-99.1 F) 96.9 F L 97.3 F L Temperature Source Temporal Temporal Pulse Rate (60-100) 108 H 105 H Pulse Location Monitor Monitor Respiratory Rate (12-18) 16 18 Respiratory rate source Observation Observation Oxygen Delivery Method Room Air Room Air Blood Pressure (90/60-120/80) 132/97 H 156/99 H Blood Pressure Mean (mm Hg) 108 118 Source Monitor Monitor Position Sitting Sitting Blood Pressure Location Left Arm Right Arm History Since Last Visit- (Skip if this is Patient's initial visit) Have you changed medications since your No No last visit? Any new allergies or adverse reactions No No Had a fall/change in ADL's that may No No increase risk of falls Signs or symptoms of abuse and/or No No neglect since last visit Have you been in the hospital since your No No last visit? Has dressing in place as prescribed Yes Yes Has compression in place as prescribed Yes Yes Has offloadiing in place as prescribed N/A N/A Experienced any changes in pain level or No No management Left Footwear Regular Shoe Regular Shoe Right Footwear Regular Shoe Regular Shoe Pain Scale: 0-10 Numeric Is Patient Pain Free? Yes Yes WC - Nurse 1 - General Ulcer Measurement Start: 04/09/23 13:59 Freq: Status: Active Protocol: Activity Type Activity Date Activity User E-sign Co-sign Detail Recorded Client Recorded Date Recorded By Document 04/09/23 14:01 [facility] [id number] 04/09/23 14:10 [facility] Document 04/16/23 13:23 [id number] 04/16/23 13:44 KW 04/09/23 04/16/23 14:01 13:23 Wound Center Nurse 1 #2 L Post Calf -Combined with other wound No -Current Size (cm) - Length 1.1 1.0 -Current Size (cm) - Width 1.6 2.2 -Current Size (cm) - Depth 0.2 0.1 -Total Square Cm 1.76 2.20 -Date of Last Picture (Recall this 04/09/23 field) -Photo Taken Yes Yes -Epithelialization None Present -Tunneling No -Undermining/Tunneling No -Circular Undermining No -Exudate Amt Medium Small -Exudate Type Serosanguineous Serosanguineous -Wound Margin Distinct, Distinct, Outline Outline Attached Attached -Granulation Amt Medium (34-66%) Medium (34-66%) -Granulation Quality Red Red -Slough/Fibrin Yes -Necrosis Amt Medium (34-66%) Small (1-33%) -Necrotic Tissue Type Adherent Slough Adherent Slough -Texture (Taylor-wound Skin Appearance) Assessed, Assessed, Scarring Localized Edema ,Rash -Moisture (Taylor-wound Skin Appearance) Assessed Assessed -Color (Taylor-wound Skin Appearance) Assessed, Assessed, Erythema Erythema -Temperature (Taylor-wound Skin No Abnormality No Abnormality Appearance) (Pt Warm) (Pt Warm) -Tenderness on Palpation (Taylor-wound No Skin Appearance) -Ulcer Cleansing Rinsed/ Rinsed/ Irrigated with Irrigated with Saline Saline -Foul Odor after Cleansing No No -Anesthetic Used 5% Lidocaine 4% Lidocaine Gel Solution #1 L Post Knee -Combined with other wound No -Current Size (cm) - Length 0.3 1.0 -Current Size (cm) - Width 2.3 2.9 -Current Size (cm) - Depth 0.8 0.4 -Total Square Cm 0.69 2.90 -Date of Last Picture (Recall this 04/09/23 field) -Photo Taken Yes -Epithelialization None Present -Tunneling No Yes -Tunneling Position (O'clock) 5 -Tunneling Distance (cm) 5 -Tunneling Distance #2 (cm) 0.5 -Undermining/Tunneling No No -Circular Undermining No -Exudate Amt Medium Small -Exudate Type Serosanguineous Serosanguineous -Wound Margin Distinct, Distinct, Outline Outline Attached Attached -Granulation Amt Medium (34-66%) Large (67-100%) -Granulation Quality Red Red -Slough/Fibrin Yes -Necrosis Amt Medium (34-66%) Small (1-33%) -Necrotic Tissue Type Adherent Slough -Texture (Taylor-wound Skin Appearance) Assessed, Assessed, Scarring Localized Edema -Moisture (Taylor-wound Skin Appearance) Assessed Assessed -Color (Taylor-wound Skin Appearance) Assessed Assessed, Erythema -Temperature (Taylor-wound Skin No Abnormality No Abnormality Appearance) (Pt Warm) (Pt Warm) -Tenderness on Palpation (Taylor-wound No Skin Appearance) -Ulcer Cleansing Rinsed/ Rinsed/ Irrigated with Irrigated with Saline Saline -Foul Odor after Cleansing No No -Anesthetic Used 5% Lidocaine 4% Lidocaine Gel Solution Right Calf (cm) 45.0 Right Ankle (cm) 27.2 WC - Nurse 2 - General Ulcer CM Notes Start: 04/09/23 13:59 Freq: Status: Active Protocol: Activity Type Activity Date Activity User E-sign Co-sign Detail Recorded Client Recorded Date Recorded By Document 04/09/23 17:07 PL [id number] 04/09/23 17:09 PL Document 04/16/23 16:27 PL [id number] 04/16/23 16:29 PL 04/09/23 04/16/23 17:07 16:27 Wound Center Nurse 2 #2 L Post Calf -Time 14:20 13:49 -Correct Patient Yes Yes -Correct Side, Site, Position Yes Yes -Correct Procedure Yes Yes -Procedure Performed Yes Yes -Type of Procedure Debridement Debridement -Clinical Debridement Subcutaneous Subcutaneous -Tissue Removed Subcutaneous Subcutaneous -Post Debridement (cm) - Length 0.9 0.6 -Post Debridement (cm) - Width 2.1 1.6 -Post Debridement (cm) - Depth 0.3 0.2 -Total Square (Post) (cm) 1.89 0.96 -Area of Debridement (cm) - Length 0.9 0.6 -Area of Debridement (cm) - Width 2.1 1.6 -Total Square (Area) (cm) 1.89 0.96 -Tunneling No No -Undermining/Tunneling No No -Circular Undermining No No -Wound/Ulcer Outcome Not Healed Not Healed -Ulcer Cleansing Rinsed/ Rinsed/ Irrigated with Irrigated with Saline Saline -Foul Odor after Cleansing No No -Bioengineered Tissue No No -Bleeding Controlled with Pressure Pressure -Treatment Response Procedure Procedure Tolerated Well Tolerated Well -Debridement - Subq, 1st 20sq cm Yes No #1 L Post Knee -Time 14:20 13:49 -Correct Patient Yes Yes -Correct Side, Site, Position Yes Yes -Correct Procedure Yes Yes -Procedure Performed Yes Yes -Type of Procedure Debridement Debridement -Clinical Debridement Subcutaneous Subcutaneous -Tissue Removed Subcutaneous Subcutaneous -Post Debridement (cm) - Length 0.8 0.8 -Post Debridement (cm) - Width 2.9 2.5 -Post Debridement (cm) - Depth 1.0 0.5 -Total Square (Post) (cm) 2.32 2.00 -Area of Debridement (cm) - Length 0.8 0.8 -Area of Debridement (cm) - Width 2.9 2.5 -Total Square (Area) (cm) 2.32 2.00 -Tunneling No Yes -Tunneling Position (O'clock) 5 -Tunneling Distance (cm) 1.3 -Undermining/Tunneling Yes No -Undermining/Tunneling Starts (O'clock 7 ) -Undermining/Tunneling Ends (O'clock) 8 -Maximum Distance (cm) 4.5 -Circular Undermining No No -Wound/Ulcer Outcome Not Healed -Ulcer Cleansing Rinsed/ Irrigated with Saline -Foul Odor after Cleansing No -Bioengineered Tissue No -Bleeding Controlled with Pressure -Treatment Response Procedure Tolerated Well -Debridement - Subq, 1st 20sq cm No Yes Pain Scale: 0-10 Numeric Is Patient Pain Free? Yes Yes - Nurse 3 - General Ulcer D/C NN Start: 04/09/23 13:59 Freq: Status: Active Protocol: Activity Type Activity Date Activity User E-sign Co-sign Detail Recorded Client Recorded Date Recorded By Document 04/09/23 14:44 [facility] [id number] 04/09/23 14:47 [facility] Document 04/16/23 14:09 [facility] [id number] 04/16/23 14:10 [facility] 04/09/23 04/16/23 14:44 14:09 Wound Care Center Nurse 3 #2 L Post Calf -Ulcer Cleansing Rinsed/ Rinsed/ Irrigated with Irrigated with Saline Saline -Foul Odor after Cleansing No No -Other Dressing DAKINS MOIST dakins moist GAUZE gauze -Primary Dressing Covered/Secured with Dry Gauze & Dry Gauze & Roll Gauze, Roll Gauze, Secured with Secured with Tape Tape -Other Covering ABD, KERLIX, abd PER KW FORENSIC DOCUMENT EXAMINER -Nugauze, Plain 1/4in 1 #1 L Post Knee -Ulcer Cleansing Rinsed/ Rinsed/ Irrigated with Irrigated with Saline Saline -Foul Odor after Cleansing No No -Primary Dressing Applied Nugauze, Plain Nugauze, Plain 1/4in 1/4in -Other Dressing DAKINS MOIST dakins moist NUGAUZE; PER KW nugauze FORENSIC DOCUMENT EXAMINER -Primary Dressing Covered/Secured with Dry Gauze & Dry Gauze & Roll Gauze, Roll Gauze, Secured with Secured with Tape Tape -Other Covering abd -Nugauze, Plain 1/4in 1 0 Left -Compression Wrap Chuy Wrap Chuy Wrap -Other chuy to secure Treatment Response Procedure Procedure Tolerated Well Tolerated Well Pain Scale: 0-10 Numeric Is Patient Pain Free? Yes Yes - Visit Discharge Discharge Condition Stable Stable Ambulatory Status Ambulatory Ambulatory Transportation Private Auto Private Auto Additional Wound Wound debrided: L superior posterior calf Laterality: Left Type of Debridement: Excisional debridement Anesthesia Used: 5% Lidocaine Gel Depth: Down to and including healthy tissue Percentage of wound debrided: 100 Instrument Used: 5mm curette Tissue Removed: slough, devitalized tissue Severity: Limited To Skin Breakdown Amount of bleeding with debridement: Mild Bleeding Controlled with: Pressure Patient tolerated procedure: Patient tolerated procedure well Assessment/Plan Assessment/Plan (1) Laceration of lower leg, left, complicated: CODE(S): S81.812A - Laceration without foreign body, left lower leg, initial encounter (2) Traumatic seroma of left lower leg: CODE(S): T79.2XXA - Traumatic secondary and recurrent hemorrhage and seroma, initial encounter (3) Abrasion of left calf: CODE(S): S80.812A - Abrasion, left lower leg, initial encounter PLAN: Plan Size and depth of wounds continues to improve. No signs/symptoms of infection on exam today. Continue to gently pack the popliteal fossa wound with Nugauze lightly moistened with dakins, cover both wound beds with 1 layer of dakins moistened gauze, then cover with super absorber or dry dressing/karlix wrap (whichever more readily stays in place). Change the outer dressings at least once daily or more often if they become soiled or soaked. Change packing at least every other day. Continue to utilize CHUY wrap for compression. She will contact us if she notices any new or worsening swelling, redness, or pain. She will follow-up in 1 week or sooner as needed.
[2023-04-23 13:28] VITALS: BP 145/109; PULSE 116; RESP 16
--- NOTE | 2023-04-29 16:58 | PCM.WC.PN ---
History of Present Illness Date of Service: 04/23/23 Chief Complaint: L popliteal fossa wound History of Wound: Patient is a 42 y/o female who presents today for evaluation and management of a wound in her L popliteal fossa. On 03/20, she fell getting down from a truck bed and hit the back of her L knee on the truck hitch/wires, She reports initially it left a gash, but did not seem too deep. As time went on, she had progressively worsening L lower leg swelling/bruising, redness, and pain so she presented to urgent care on 03/24 for evaluation. She was prescribed Keflex and instructed to follow-up with her PCP. She saw her PCP on 03/26, a culture was obtained and report shows it grew MRSA, she was switched to doxycycline. A duplex was also ordered which was negative for DVT, showed anterior etienne hematoma. She was referred here for continued wound care. She has no significant medical history. Subjective Subjective Swelling continues to improve, ecchymosis remains resolved. Tenderness around the area of the wound has resolved. No redness. Minimal drainage over the last week, not really able to pack anymore. No N/V, F/C. Objective Data Objective Data Vital Signs: Vital Signs Temp Pulse Resp BP O2 Del Method 97.3 F L 116 H 16 145/109 H Room Air 04/16/23 13:23 04/23/23 13:28 04/23/23 13:28 04/23/23 13:28 04/23/23 13:28 Oxygen Delivery Method Room Air Charges/Coding Procedures Integumentary 111xxx-113xx: [id number] Kristen subq tissue 20 sq cm/< Physical Exam Const alert, oriented x3 and no apparent distress General Appearance: cooperative Resp normal respiratory effort and no use of accessory muscles Effort and Inspection: able to speak in complete sentences; Negative for respiratory distress Extremity Extremity Narrative: L DP/PT pulses palpable/intact. Capillary refill intact. No cyanotic discoloration of the left lower left/foot. L lower leg with edema, continuing to improve. Soft to palpation. No surrounding erythema, warmth, ecchymosis. Skin Skin Narrative: Very minimal tracking remaining at about 7'oclock. Minimal serous drainage. No purulence able to be expressed. The wound continues to fill in with granulation tissue since last week. Superficial wound on the superior portion of the posterior calf, some slough, pink granulation tissue, improving in size. Psych mental status grossly normal Appearance: grossly normal Attitude: calm and engaged Activity / Motor Behavior: appropriate eye contact Speech: normal speech Debridement Note Debridement Note Wound debrided: L popliteal fossa Laterality: Left Type of Debridement: Selective debridement Anesthesia Used: 5% Lidocaine Gel Depth: in the subcutaneous layer Percentage of wound debrided: 50 Instrument Used: 3mm curette Tissue Removed: slough Severity: Fat Layer Exposed Amount of bleeding with debridement: Mild Bleeding Controlled with: Pressure Patient tolerated procedure: Patient tolerated procedure well Post-Debridement Measurements and Additional Note: Post-Debridement Measurements/Treatment - Nurse 1 - General Ulcer Assessment Start: 04/09/23 13:59 Freq: Status: Active Protocol: NIYA Activity Type Activity Date Activity User E-sign Co-sign Detail Recorded Client Recorded Date Recorded By Document 04/09/23 14:01 [facility] [id number] 04/09/23 14:10 [facility] Document 04/16/23 13:23 [id number] 04/16/23 13:44 Document 04/23/23 13:28 [facility] Desktop 04/23/23 13:37 [facility] 04/09/23 04/16/23 04/23/23 14:01 13:23 13:28 - Today's Visit Information Type of service Follow-up Visit Follow-up Visit Follow-up Visit (Physician/HIGH SCHOOL MATHEMATICS TEACHER (Physician/HIGH SCHOOL MATHEMATICS TEACHER (Physician/HIGH SCHOOL MATHEMATICS TEACHER ) ) ) Arrival Mode Ambulatory Ambulatory Ambulatory Transfer Assistance None None Patient Identification Verified (Name & Yes Yes Yes ) Patient Requires Transmission-Based No No Precautions Vital Signs Temperature (97.8 F-99.1 F) 96.9 F L 97.3 F L Temperature Source Temporal Temporal Pulse Rate (60-100) 108 H 105 H 116 H Pulse Location Monitor Monitor Monitor Respiratory Rate (12-18) 16 18 16 Respiratory rate source Observation Observation Observation Oxygen Delivery Method Room Air Room Air Room Air Blood Pressure (90/60-120/80) 132/97 H 156/99 H 145/109 H Blood Pressure Mean (mm Hg) 108 118 121 Source Monitor Monitor Monitor Position Sitting Sitting Sitting Blood Pressure Location Left Arm Right Arm Left Arm History Since Last Visit- (Skip if this is Patient's initial visit) Have you changed medications since your No No No last visit? Any new allergies or adverse reactions No No No Had a fall/change in ADL's that may No No No increase risk of falls Signs or symptoms of abuse and/or No No No neglect since last visit Have you been in the hospital since your No No No last visit? Has dressing in place as prescribed Yes Yes Yes Has compression in place as prescribed Yes Yes Yes Has offloadiing in place as prescribed N/A N/A N/A Experienced any changes in pain level or No No No management Left Footwear Regular Shoe Regular Shoe Regular Shoe Right Footwear Regular Shoe Regular Shoe Regular Shoe Pain Scale: 0-10 Numeric Is Patient Pain Free? Yes Yes Yes WC - Nurse 1 - General Ulcer Measurement Start: 04/09/23 13:59 Freq: Status: Active Protocol: Activity Type Activity Date Activity User E-sign Co-sign Detail Recorded Client Recorded Date Recorded By Document 04/09/23 14:01 [facility] [id number] 04/09/23 14:10 [facility] Document 04/16/23 13:23 [id number] 04/16/23 13:44 KW Document 04/23/23 13:28 [facility] Desktop 04/23/23 13:37 [facility] 04/09/23 04/16/23 04/23/23 14:01 13:23 13:28 Wound Center Nurse 1 #2 L Post Calf -Combined with other wound No No -Current Size (cm) - Length 1.1 1.0 0.1 -Current Size (cm) - Width 1.6 2.2 0.4 -Current Size (cm) - Depth 0.2 0.1 0.1 -Total Square Cm 1.76 2.20 0.04 -Date of Last Picture (Recall this 04/09/23 field) -Photo Taken Yes Yes No -Epithelialization None Present Medium 34-66% -Tunneling No No -Undermining/Tunneling No No -Circular Undermining No No -Exudate Amt Medium Small Small -Exudate Type Serosanguineous Serosanguineous Serosanguineous -Wound Margin Distinct, Distinct, Distinct, Outline Outline Outline Attached Attached Attached -Granulation Amt Medium (34-66%) Medium (34-66%) Large (67-100%) -Granulation Quality Red Red Red -Slough/Fibrin Yes Yes -Necrosis Amt Medium (34-66%) Small (1-33%) Small (1-33%) -Necrotic Tissue Type Adherent Slough Adherent Slough Adherent Slough -Texture (Taylor-wound Skin Appearance) Assessed, Assessed, Assessed, Scarring Localized Edema Excoriation ,Rash -Moisture (Taylor-wound Skin Appearance) Assessed Assessed Assessed -Color (Taylor-wound Skin Appearance) Assessed, Assessed, Assessed, Erythema Erythema Erythema -Temperature (Taylor-wound Skin No Abnormality No Abnormality No Abnormality Appearance) (Pt Warm) (Pt Warm) (Pt Warm) -Tenderness on Palpation (Taylor-wound No No Skin Appearance) -Ulcer Cleansing Rinsed/ Rinsed/ Rinsed/ Irrigated with Irrigated with Irrigated with Saline Saline Saline -Foul Odor after Cleansing No No No -Anesthetic Used 5% Lidocaine 4% Lidocaine 5% Lidocaine Gel Solution Gel #1 L Post Knee -Combined with other wound No No -Current Size (cm) - Length 0.3 1.0 0.3 -Current Size (cm) - Width 2.3 2.9 1.9 -Current Size (cm) - Depth 0.8 0.4 0.4 -Total Square Cm 0.69 2.90 0.57 -Date of Last Picture (Recall this 04/09/23 field) -Photo Taken Yes No -Epithelialization None Present Small 1-33% -Tunneling No Yes No -Tunneling Position (O'clock) 5 -Tunneling Distance (cm) 5 -Tunneling Distance #2 (cm) 0.5 -Undermining/Tunneling No No No -Circular Undermining No No -Exudate Amt Medium Small Medium -Exudate Type Serosanguineous Serosanguineous Serosanguineous -Wound Margin Distinct, Distinct, Distinct, Outline Outline Outline Attached Attached Attached -Granulation Amt Medium (34-66%) Large (67-100%) Medium (34-66%) -Granulation Quality Red Red [place] -Slough/Fibrin Yes Yes -Necrosis Amt Medium (34-66%) Small (1-33%) Medium (34-66%) -Necrotic Tissue Type Adherent Slough Adherent Slough -Texture (Taylor-wound Skin Appearance) Assessed, Assessed, Assessed, Scarring Localized Edema Excoriation, Scarring -Moisture (Taylor-wound Skin Appearance) Assessed Assessed Assessed -Color (Taylor-wound Skin Appearance) Assessed Assessed, Assessed, Erythema Erythema -Temperature (Taylor-wound Skin No Abnormality No Abnormality No Abnormality Appearance) (Pt Warm) (Pt Warm) (Pt Warm) -Tenderness on Palpation (Taylor-wound No No Skin Appearance) -Ulcer Cleansing Rinsed/ Rinsed/ Rinsed/ Irrigated with Irrigated with Irrigated with Saline Saline Saline -Foul Odor after Cleansing No No No -Anesthetic Used 5% Lidocaine 4% Lidocaine 5% Lidocaine Gel Solution Gel Right Calf (cm) 45.0 Right Ankle (cm) 27.2 WC - Nurse 2 - General Ulcer CM Notes Start: 04/09/23 13:59 Freq: Status: Active Protocol: Activity Type Activity Date Activity User E-sign Co-sign Detail Recorded Client Recorded Date Recorded By Document 04/09/23 17:07 PL [id number] 04/09/23 17:09 PL Document 04/16/23 16:27 PL [id number] 04/16/23 16:29 PL Document 04/23/23 16:40 PL [id number] 04/23/23 16:41 PL 04/09/23 04/16/23 04/23/23 17:07 16:27 16:40 Wound Center Nurse 2 #2 L Post Calf -Time 14:20 13:49 13:39 -Correct Patient Yes Yes Yes -Correct Side, Site, Position Yes Yes Yes -Correct Procedure Yes Yes Yes -Procedure Performed Yes Yes Yes -Type of Procedure Debridement Debridement Debridement -Clinical Debridement Subcutaneous Subcutaneous Subcutaneous -Tissue Removed Subcutaneous Subcutaneous Subcutaneous -Post Debridement (cm) - Length 0.9 0.6 0.6 -Post Debridement (cm) - Width 2.1 1.6 0.5 -Post Debridement (cm) - Depth 0.3 0.2 0.1 -Total Square (Post) (cm) 1.89 0.96 0.30 -Area of Debridement (cm) - Length 0.9 0.6 0.6 -Area of Debridement (cm) - Width 2.1 1.6 0.5 -Total Square (Area) (cm) 1.89 0.96 0.30 -Tunneling No No No -Undermining/Tunneling No No No -Circular Undermining No No No -Wound/Ulcer Outcome Not Healed Not Healed Not Healed -Ulcer Cleansing Rinsed/ Rinsed/ Rinsed/ Irrigated with Irrigated with Irrigated with Saline Saline Saline -Foul Odor after Cleansing No No No -Bioengineered Tissue No No No -Bleeding Controlled with Pressure Pressure Pressure -Treatment Response Procedure Procedure Procedure Tolerated Well Tolerated Well Tolerated Well -Debridement - Subq, 1st 20sq cm Yes No No #1 L Post Knee -Time 14:20 13:49 13:39 -Correct Patient Yes Yes Yes -Correct Side, Site, Position Yes Yes Yes -Correct Procedure Yes Yes Yes -Procedure Performed Yes Yes Yes -Type of Procedure Debridement Debridement Debridement -Clinical Debridement Subcutaneous Subcutaneous Subcutaneous -Tissue Removed Subcutaneous Subcutaneous Subcutaneous -Post Debridement (cm) - Length 0.8 0.8 0.4 -Post Debridement (cm) - Width 2.9 2.5 1.8 -Post Debridement (cm) - Depth 1.0 0.5 0.4 -Total Square (Post) (cm) 2.32 2.00 0.72 -Area of Debridement (cm) - Length 0.8 0.8 0.4 -Area of Debridement (cm) - Width 2.9 2.5 1.8 -Total Square (Area) (cm) 2.32 2.00 0.72 -Tunneling No Yes No -Tunneling Position (O'clock) 5 -Tunneling Distance (cm) 1.3 -Undermining/Tunneling Yes No No -Undermining/Tunneling Starts (O'clock 7 ) -Undermining/Tunneling Ends (O'clock) 8 -Maximum Distance (cm) 4.5 -Circular Undermining No No No -Wound/Ulcer Outcome Not Healed Not Healed -Ulcer Cleansing Rinsed/ Rinsed/ Irrigated with Irrigated with Saline Saline -Foul Odor after Cleansing No No -Bioengineered Tissue No No -Bleeding Controlled with Pressure Pressure -Treatment Response Procedure Procedure Tolerated Well Tolerated Well -Debridement - Subq, 1st 20sq cm No Yes Yes Pain Scale: 0-10 Numeric Is Patient Pain Free? Yes Yes Yes WC - Nurse 3 - General Ulcer D/C NN Start: 04/09/23 13:59 Freq: Status: Active Protocol: Activity Type Activity Date Activity User E-sign Co-sign Detail Recorded Client Recorded Date Recorded By Document 04/09/23 14:44 [facility] [id number] 04/09/23 14:47 [facility] Document 04/16/23 14:09 [facility] [id number] 04/16/23 14:10 [facility] 04/09/23 04/16/23 14:44 14:09 Wound Care Center Nurse 3 #2 L Post Calf -Ulcer Cleansing Rinsed/ Rinsed/ Irrigated with Irrigated with Saline Saline -Foul Odor after Cleansing No No -Other Dressing DAKINS MOIST dakins moist GAUZE gauze -Primary Dressing Covered/Secured with Dry Gauze & Dry Gauze & Roll Gauze, Roll Gauze, Secured with Secured with Tape Tape -Other Covering ABD, KERLIX, abd PER KW LIBRARY SPECIALIST -Nugauze, Plain 1/4in 1 #1 L Post Knee -Ulcer Cleansing Rinsed/ Rinsed/ Irrigated with Irrigated with Saline Saline -Foul Odor after Cleansing No No -Primary Dressing Applied Nugauze, Plain Nugauze, Plain 1/4in 1/4in -Other Dressing DAKINS MOIST dakins moist NUGAUZE; PER KW nugauze LIBRARY SPECIALIST -Primary Dressing Covered/Secured with Dry Gauze & Dry Gauze & Roll Gauze, Roll Gauze, Secured with Secured with Tape Tape -Other Covering abd -Nugauze, Plain 1/4in 1 0 Left -Compression Wrap Chuy Wrap Chuy Wrap -Other chuy to secure Treatment Response Procedure Procedure Tolerated Well Tolerated Well Pain Scale: 0-10 Numeric Is Patient Pain Free? Yes Yes WC - Visit Discharge Discharge Condition Stable Stable Ambulatory Status Ambulatory Ambulatory Transportation Private Auto Private Auto Additional Wound Wound debrided: L superior posterior calf Laterality: Left Type of Debridement: Excisional debridement Anesthesia Used: 5% Lidocaine Gel Depth: Down to and including healthy tissue Percentage of wound debrided: 100 Instrument Used: 5mm curette Tissue Removed: slough, devitalized tissue Severity: Limited To Skin Breakdown Amount of bleeding with debridement: Mild Bleeding Controlled with: Pressure Patient tolerated procedure: Patient tolerated procedure well Assessment/Plan Assessment/Plan (1) Laceration of lower leg, left, complicated: CODE(S): S81.812A - Laceration without foreign body, left lower leg, initial encounter (2) Traumatic seroma of left lower leg: CODE(S): T79.2XXA - Traumatic secondary and recurrent hemorrhage and seroma, initial encounter (3) Abrasion of left calf: CODE(S): S80.812A - Abrasion, left lower leg, initial encounter PLAN: Plan Size and depth of wounds continues to improve. No signs/symptoms of infection on exam today. Will switch to applying slightly moistened promogran to the wound beds. Continue with dry kerlix/gauze wrap for outer dressing. Change once daily or more often as needed to keep clean and dry. Continue to utilize CHUY wrap for compression. She will follow-up in 1 week or sooner as needed.
== END 2023-05-02 23:59 | disposition home or self-care (01) ==
LOC: WC 13:15
PROVIDERS: PCP Nurse Practitioner Family; Referring Provider Nurse Practitioner Family; Visit Provider Physician Assistant
DX: S81.812A Laceration without foreign body, left lower leg, initial encounter (principal); T79.2XXA Traumatic secondary and recurrent hemorrhage and seroma, initial encounter; S80.812A Abrasion, left lower leg, initial encounter; R11.2 Nausea with vomiting, unspecified
CPT/HCPCS: 11042

== ENCOUNTER → 2023-06-09 | Outpatient (CLI) | payer OTHER, SELFPAY ==
--- NOTE | 2023-06-09 07:21 | BI_ITS ---
MAMMOGRAPHY - BILATERAL SCREENING REASON FOR EXAM: Female, 43 years old. Routine annual screening examination. PERTINENT HISTORY: Non-contributory. TECHNIQUE: Digital bilateral breast susu (3D mammographic acquisition) in the CC and MLO projections. 2-D mediolateral oblique (MLO) and craniocaudad (CC) views of both breasts were obtained. CAD: Full Field Digital Mammography with Computer Added Detection was performed. COMPARISON: Comparison is made with prior study July 03, 2022. FINDINGS: Breast Composition: The breasts are heterogeneously dense, which may obscure small masses. There are no dominant masses or suspicious calcifications. Stable asymmetry of breast tissue with more breast tissue is seen in the upper outer quadrant of the left breast as compared to the right side. No other significant abnormalities are identified. There has been no significant change since the prior study. BI/SCRN MAMM (CAD)W/SUSU BILAT IMPRESSION: Stable bilateral screening mammogram. Yearly follow-up mammogram recommended. (A) ASSESSMENT CATEGORY: BIRADS Category 2: Benign. A letter regarding these results will be sent to the patient by the facility within 30 days. Approximately 10% of breast cancers are not detected by mammography. A normal mammogram should not delay biopsy of a clinically suspicious abnormality. [id number] Electronically Signed: Froilan Claros MD at 8:32 EST ,
== END | disposition home or self-care (01) ==
LOC: OPBI 07:20
PROVIDERS: PCP Nurse Practitioner Family; Referring Provider Nurse Practitioner Family; Visit Provider Nurse Practitioner Family
DX: Z12.31 Encounter for screening mammogram for malignant neoplasm of breast (principal)
CPT/HCPCS: 77063; 77067

== ENCOUNTER → 2024-06-10 | Outpatient (CLI) | payer OTHER, SELFPAY | END | disposition home or self-care (01) | PROVIDERS: PCP Nurse Practitioner Family; Referring Provider Nurse Practitioner Family; Visit Provider Nurse Practitioner Family | DX: Z12.31 Encounter for screening mammogram for malignant neoplasm of breast (principal); R92.8 Other abnormal and inconclusive findings on diagnostic imaging of breast | CPT/HCPCS: 76642; 77063; 77067 ==

== ENCOUNTER → 2024-07-07 | Outpatient (CLI) | payer OTHER, SELFPAY ==
--- NOTE | 2024-07-07 09:36 | US_ITS ---
STUDY: ULTRASOUND BREAST - LEFT REASON FOR EXAM: Female, 44 years old. Left breast mass. TECHNIQUE: Axial and longitudinal images of the LEFT breast were performed with a high resolution ultrasound transducer. # OF IMAGES: 37 COMPARISON: Comparison is made with prior study June 10, 2024. FINDINGS: LEFT Breast: Under direct sonographic guidance, the surgeon performed core biopsies of the 2.2 cm x 1.8 cm x 1 cm irregular nodule at the 2:00 position breast at 8 cm from the nipple. US/US Breast Biopsy 1st Lesion IMPRESSION: Ultrasound-guided breast biopsy. ASSESSMENT CATEGORY: BIRADS Category 0: Incomplete. Need additional imaging evaluation. A letter regarding these results will be sent to the patient by the facility within 30 days. Electronically Signed: Froilan Claros MD at 13:13 EST ,
--- NOTE | 2024-07-07 10:30 | BRBX_PTH ---
PATIENT: JAVON HANEY LOC: [facility] U#:[id number] AGE/SX: 44/F ROOM: RE07/07/[address]: Dr. Loco Sylvester MD : 1980 BED: DIS: 07/07/2024 SPEC #: [id number] RECD: 07/07/24 12:08 STATUS: KONSTANTIN RERosalie #: [id number] RE: 07/07/24 10:[address]: Loco Sylvester DEPT: SURGICAL PATHOLOGY RECD BY: Anaya Joseph ENTERED: 07/07/24 12:26 SP TYPE: BREAST BX OTHR DR: MURALI Hanson Tissues: Left breast, NOS Procedures: Surgery Specimen Level IV HEADER OPERATION: Ultrasound guided breast biopsy PRE-OP DIAGNOSIS: Left breast abnormal mammogram TISSUE SUBMITTED: Left breast Ischemic Time: 1 minute Fixation Time: 10 hours MICROSCOPIC DIAGNOSIS Left breast, core biopsy: Mild duct ectasia. Minimal stromal fibrosis. No evidence of malignancy. See comment. AM. 07/08/2024 COMMENT Re-biopsy is recommended if clinically indicated. MICROSCOPIC DESCRIPTION Slides are reviewed. GROSS DESCRIPTION Received in fixative is one container labeled with the patient's name and designated Left breast biopsy. The specimen consists of multiple irregular and elongated fragments of bee-yellow soft tissue that in aggregate measure 2.0 x 1.0 x 0.1 cm. The specimen is totally submitted in one cassette. AM. 07/07/2024 TC:5 CPT:64766
--- NOTE | 2024-07-07 10:45 | PCM.OPRPT ---
Operative Report (Standard) Operative Information Surgery/Procedure Performed: Ultrasound-guided left breast biopsy Surgeon: Loco Sylvester Date of Procedure: 07/07/24 Procedure Start Time: 10:35 Procedure Stop Time: 10:40 Pre-Operative Diagnosis: Abnormal mammogram of the left breast Post-Operative Diagnosis: Same Select all DRAINS/GRAFTS/IMPLANTS that apply: None Type of Anesthesia: Local Estimated Blood Loss: 2 Specimen collected: Yes Description of specimen(s) removed: Left breast biopsy Description of surgery: Left breast was prepped and draped in usual sterile fashion. The mass was localized and lateral to this an area of skin was injected with local anesthetic. A small jenna was made with a scalpel. A 14-gauge biopsy needle was placed into the mass under ultrasound guidance several times and biopsies were obtained. Next the clip was placed into the mass under ultrasound guidance. A Steri-Strip and bandage were placed over the incision and the patient tolerated the procedure well. Surgical Findings: Left breast mass Assistant Elementary Teacher imaging nurse: No Complications Complications: No
== END | disposition home or self-care (01) ==
LOC: OPUS 09:34
PROVIDERS: PCP Nurse Practitioner Family; Referring Provider Surgery; Visit Provider Surgery
DX: R92.8 Other abnormal and inconclusive findings on diagnostic imaging of breast (principal); N60.42 Mammary duct ectasia of left breast
CPT/HCPCS: 19083; 88305